=== PATIENT | male | born 1950 | race Caucasian/White ===

== ENCOUNTER → 2022-05-11 15:30 | Outpatient (BNVA) | payer MEDICARE, SELFPAY | PROVIDERS: PCP Family Medicine; Visit Provider Internal Medicine Cardiovascular Disease | DX: I48.11 Longstanding persistent atrial fibrillation (principal); I10 Essential (primary) hypertension; E78.2 Mixed hyperlipidemia; E11.65 Type 2 diabetes mellitus with hyperglycemia; G47.33 Obstructive sleep apnea (adult) (pediatric); I49.3 Ventricular premature depolarization; I47.2 Ventricular tachycardia; Z87.891 Personal history of nicotine dependence | CPT/HCPCS: 93005; 93242; 99214 ==

== ENCOUNTER → 2022-07-28 11:00 | Outpatient (BNVA) | payer MEDICARE, SELFPAY | PROVIDERS: PCP Family Medicine; Visit Provider Internal Medicine Cardiovascular Disease | DX: I48.11 Longstanding persistent atrial fibrillation (principal); Z79.01 Long term (current) use of anticoagulants; I49.9 Cardiac arrhythmia, unspecified; I10 Essential (primary) hypertension; E78.2 Mixed hyperlipidemia; E11.65 Type 2 diabetes mellitus with hyperglycemia; Z79.84 Long term (current) use of oral hypoglycemic drugs; G47.33 Obstructive sleep apnea (adult) (pediatric); Z87.891 Personal history of nicotine dependence | CPT/HCPCS: 99214 ==

== ENCOUNTER → 2023-01-26 11:05 | Outpatient (BNVA) | payer MEDICARE, SELFPAY | PROVIDERS: PCP Family Medicine; Visit Provider Internal Medicine Cardiovascular Disease | DX: I48.11 Longstanding persistent atrial fibrillation (principal); I10 Essential (primary) hypertension; E78.2 Mixed hyperlipidemia; E11.65 Type 2 diabetes mellitus with hyperglycemia; G47.33 Obstructive sleep apnea (adult) (pediatric); I49.8 Other specified cardiac arrhythmias; Z87.891 Personal history of nicotine dependence; Z79.84 Long term (current) use of oral hypoglycemic drugs; Z79.01 Long term (current) use of anticoagulants; Z79.82 Long term (current) use of aspirin | CPT/HCPCS: 99214 ==

== ENCOUNTER → 2023-08-10 11:15 | Outpatient (BNVA) | payer MEDICARE, SELFPAY | PROVIDERS: PCP Family Medicine; Visit Provider Internal Medicine Cardiovascular Disease | DX: I48.11 Longstanding persistent atrial fibrillation (principal); I10 Essential (primary) hypertension; E78.2 Mixed hyperlipidemia; E11.65 Type 2 diabetes mellitus with hyperglycemia; G47.33 Obstructive sleep apnea (adult) (pediatric); I49.8 Other specified cardiac arrhythmias; Z87.891 Personal history of nicotine dependence; Z79.01 Long term (current) use of anticoagulants; Z79.84 Long term (current) use of oral hypoglycemic drugs | CPT/HCPCS: 99214 ==

== ENCOUNTER 2023-12-22 06:57 | Outpatient (CLI) | payer MEDICARE, SELFPAY ==
--- NOTE | 2023-12-22 07:01 | MR_ITS ---
WS: [id number] MRI LEFT SHOULDER HISTORY: LEFT SHOULDER PAIN COMPARISON: None available. TECHNIQUE: Multiplanar sequences of the shoulder joint are submitted. Moderate AC joint arthritis. Osteophyte encroaching upon the myotendinous portion of the supraspinatu s. Marked narrowing of the AC joint. Moderate subacromial impingement upon the distal supraspinatus t endon. Small amount of fluid in the subacromial and subdeltoid bursa. Biceps tendon remains in normal position in the bicipital groove. No os acromion. Mildly high riding humeral head with moderate narrowing of the glenohumeral joint. Loss of cartilage over the glenoid and the humeral head. No fracture or marrow edema. No significant joint effusion. Th ere is a small amount of fluid in the rotator cuff interval. No supraspinatus muscle atrophy. Cannot confirm tendon tear. No muscle edema. Mildly globular appeara nce to the posterior and inferior labrum with increased central signal. Labrum is entirety is difficu lt to visualize adequately. IMPRESSION: 1. Moderate AC joint arthritis with osteophyte encroaching upon the myotendinous portion of the supr aspinatus. 2. High riding humeral head with moderate subacromial impingement. 3. No rotator cuff tear is identified. No muscle atrophy or retraction. 4. Moderate glenohumeral joint arthritis with loss of cartilage. 5. Limited evaluation of the labrum. There is at least moderate internal degeneration. Small tears a re not excluded involving the posterior and inferior labrum.
== END 2023-12-22 06:58 | disposition home or self-care (01) ==
LOC: RAD 06:57
PROVIDERS: PCP Family Medicine; Visit Provider Family Medicine
DX: M19.012 Primary osteoarthritis, left shoulder (principal); M25.78 Osteophyte, vertebrae; M75.42 Impingement syndrome of left shoulder
CPT/HCPCS: 73221

== ENCOUNTER → 2024-01-13 08:19 | Outpatient (BNVA) | payer MEDICARE, SELFPAY | PROVIDERS: PCP Family Medicine; Referring Provider Family Medicine; Visit Provider Student in an Organized Health Care Education/Training Program | DX: M19.012 Primary osteoarthritis, left shoulder; M75.42 Impingement syndrome of left shoulder; S46.002A Unspecified injury of muscle(s) and tendon(s) of the rotator cuff of left shoulder, initial encounter; X58.XXXA Exposure to other specified factors, initial encounter | CPT/HCPCS: 73030; 99204 ==

== ENCOUNTER 2024-01-31 08:02 | Outpatient (CLI) | payer MEDICARE, SELFPAY ==
[2024-01-31 09:03] LABS: Chol HDL Ratio 4.03 mg/dL (1.0-5.00); Cholesterol 141 mg/dL (0-200); HDL Cholesterol 35 mg/dL (60-100); LDL Cholesterol Calculated 79 mg/dL (50-129); LDL HDL Ratio 2.26 RATIO (0.00-3.22); Triglycerides 133 mg/dL (0-150)
[2024-01-31 09:33] LABS: Estmated Average Glucose 163; Hemoglobin A1C 7.3 % (4.0-6.0)
== END 2024-01-31 08:03 | disposition home or self-care (01) ==
LOC: LAB 08:03
PROVIDERS: PCP Family Medicine; Visit Provider Physician Assistant
DX: I10 Essential (primary) hypertension (principal); N40.0 Benign prostatic hyperplasia without lower urinary tract symptoms; R73.03 Prediabetes; I48.20 Chronic atrial fibrillation, unspecified
CPT/HCPCS: 36415; 80061; 83036; 84153; 84443

== ENCOUNTER → 2024-02-08 15:00 | Outpatient (BNVA) | payer MEDICARE, SELFPAY | PROVIDERS: PCP Family Medicine; Visit Provider Family Medicine | DX: Z01.818 Encounter for other preprocedural examination (principal) | CPT/HCPCS: 80053; 81003; 85025 ==

== ENCOUNTER 2024-03-01 09:31 | Day surgery (SDC) | payer MEDICARE, SELFPAY ==
[2024-03-01] VITALS (8 sets, daily range): BP systolic 92–165; BP diastolic 74–108; PULSE 76–101; RESP 16–18; TEMP 36.1–36.4; O2SAT 92–98; BMI 28.6
[2024-03-01] MEDS: acetaminophen 1,000 MG/100 ML PIGGYBACK 400 MG IV (10:16)
[2024-03-01] MEDS: sodium chloride 0.9% 1,000 ML 30 ML IV (10:17)
[2024-03-01] MEDS: scopolamine 1.5 Patch 1 PATCH TRANSDERMA (10:17)
[2024-03-01] MEDS: ketorolac 30 mg/mL INJ IVP (10:18)
[2024-03-01 10:19] LABS: Glucose Point of Care 130 mg/dL (70-110)
--- NOTE | 2024-03-01 10:19 | P.ANESASSM_ITS ---
Pre-Anesthetic Assessment Height/Weight: Height 1.7 m Weight 83.007 kg Temp Pulse Resp BP Pulse Ox O2 Del Method 97.6 F 79 17 165/108 97 Room Air 03/01/24 09:55 03/01/24 09:55 03/01/24 09:55 03/01/24 09:55 03/01/24 09:55 03/01/24 09:55 Operation Date: 03/01/24 11:10 Proposed Procedures p Shoulder Arthroscopy(Left) - Tutu Merlin, DO s Subacromial Decompression(Left) - Tutu [place], DO s AC Joint Resection(Left) - Tutu Merlin, DO s Rotator Cuff Repair - Arthroscopy/ possible with possible balloon spacer(Left) - Tutu [place], DO Familial anesthetic complications: None Was Beta Selina taken within 24 hours: N/A Was Clonidine taken within 24 hours: N/A Last intake: Intake Last Liquid Date 02/29/24 Last Liquid Time 21:00 Last Solid Date 02/29/24 Last Solid Time 21:00 Social No alcohol and No tobacco Exam alert, oriented x 3, clear to auscultation bilaterally and regular rate & rhythm Airway Mallampati: Class III Dentition: full Pulmonary Sleep Apnea CV/HEM Atrial Fibrillation and Hypertension Metabolic Diabetes Mellitus and Hyperlipidemia Anesthetic Plan ASA status: 3 Anesthesia: General and Regional (specify below) Risk of > 500 ml blood loss (7ml/kg in children): No Medications/Allergies Home Medications Medication Instructions Recorded Confirmed Last Taken Type metformin 1,000 mg tablet 1,000 mg PO BID 02/05/20 02/29/24 02/28/24 History metoprolol succinate 100 mg 100 mg PO BID 02/05/20 02/29/24 03/01/24 History tablet,extended release 24 hr (Toprol XL) atorvastatin 40 mg tablet 40 mg PO DAILY 02/19/21 02/29/24 02/29/24 History nitroglycerin 0.4 mg sublingual 0.4 mg sublingual Q5M PRN chest 02/19/21 02/29/24 Unknown History tablet pain aspirin 81 mg tablet,delayed 81 mg PO DAILY 08/28/21 02/29/24 02/25/24 History release isosorbide mononitrate 60 mg 60 mg PO DAILY #90 tabs 01/16/22 02/29/24 02/29/24 Rx tablet,extended release 24 hr enoxaparin 80 mg/0.8 mL 80 mg (0.8 mL) SUBCUT Q12H #8 mL 02/08/24 02/29/24 02/28/24 Rx subcutaneous syringe (Lovenox) warfarin 3 mg tablet (Jantoven) 3 mg PO DAILY 02/08/24 02/29/24 02/22/24 History warfarin 4 mg tablet 4 mg PO DAILY 02/08/24 02/29/24 02/22/24 History amlodipine 5 mg tablet 5 mg PO DAILY 02/29/24 02/29/24 02/29/24 History losartan 100 mg tablet 100 mg PO DAILY 02/29/24 02/29/24 02/29/24 History magnesium L-lactate 84 mg 84 mg PO DAILY 02/29/24 02/29/24 02/29/24 History tablet,extended release (Magtab) hydrocodone 5 mg-acetaminophen 325 1 tab PO Q6H PRN pain 5 days #20 03/01/24 Unknown Rx mg tablet tabs ondansetron 4 mg disintegrating 4 mg PO Q8H PRN nausea and 03/01/24 Unknown Rx tablet vomiting 3 days #9 tabs Allergies Allergy/AdvReac Type Severity Reaction Status Date / Time lisinopril AdvReac cough Verified 02/29/24 09:13 Current Medications Generic Name Dose Route Start Last Admin Trade Name Freq PRN Reason Stop Dose Admin Sodium Chloride 1,000 mls @ 30 mls/hr 03/01/24 09:45 03/01/24 10:17 Sodium Chloride 0.9% IV 03/02/24 09:44 30 mls/hr .Q24H ROSS Administration PFSH Anesthesia Medical History Abnormal nuclear stress test Atrial fibrillation Hypertension Hyperlipidemia Arthritis Diabetes mellitus Sleep apnea Hiatal hernia Surgical History H/O: vasectomy H/O hernia repair History of ankle surgery History of neck surgery Family History Father CAD (coronary artery disease) Mother CAD (coronary artery disease) Diabetes Stroke Brother CAD (coronary artery disease) Sister Chronic kidney disease (CKD) Diabetes Lung disease Denies family history of Clotting disorder Dementia Suicide Anesthesia complication Bleeding disorder Cancer Social History Smoking and tobacco/nicotine status: former use of tobacco/nicotine Alcohol intake: current Alcohol intake frequency: holidays/special occasions only Substance/Drug Use: never Data Anesthesia Cardiac Studies: Holter Monitor 05/11/22
[2024-03-01 10:39] LABS: INR 0.97 (0.8-1.2)
--- NOTE | 2024-03-01 10:41 | ANES.PROC ---
Anesthesia Procedures Procedure/Date: 03/01/24 Nerve Block ^: Nerve Block 1: Main Anesthesia: general anesthesia Time Out Performed: Yes Consent: requested by attending/covering physician, from patient, from other, risks and benefits reviewed and patient agrees to proceed Nerve block location: interscalene (L) Anesthesia monitors applied: pulse oximetry, EKG, BP cuff and oxygen Nerve block position: semi sitting Anesthetic Used: ropivicaine 0.5% (20 ml) and with decadron (4 mg) Ultrasound used to: recognize landmarks, visualize and ID brachial plexus, in supraclavicular region and visualize and ID interscalene groove Nerve Stimulator Used?: No Interscalene/Femoral BLK: 2 stimuplex 22 g needle used for position and inplane approach, visualize local anesthetic spread and no vascular puncture identified Patient Tolerated Procedure: well Complications: none
--- NOTE | 2024-03-01 12:06 | W.PM.OPSFHP ---
Same Day Surgery H&P Indication for Procedure/HPI DATE OF PROCEDURE: March 01, 2024 CHIEF COMPLAINT/INDICATIONFOR SURGICAL PROCEDURE: Left shoulder AC joint arthritis Rotator cuff injury, subacromial impingement, biceps tendinitis PREOP DIAGNOSIS: Left shoulder AC joint arthritis Rotator cuff injury, subacromial impingeme PLANNED PROCEDURE: Operation Date: 03/01/24 11:10 Proposed Procedures p Shoulder Arthroscopy(Left) - Tutu Boyer, DO s Subacromial Decompression(Left) - Tutu Boyer DO s AC Joint Resection(Left) - Tutu Boyer, DO s Rotator Cuff Repair - Arthroscopy/ possible with possible balloon spacer(Left) - Tutu Boyer, DO Medications/Allergies* Home Medications Medication Instructions Recorded Confirmed Type metformin 1,000 mg tablet 1,000 mg PO BID 02/05/20 02/29/24 History metoprolol succinate 100 mg 100 mg PO BID 02/05/20 02/29/24 History tablet,extended release 24 hr (Toprol XL) atorvastatin 40 mg tablet 40 mg PO DAILY 02/19/21 02/29/24 History nitroglycerin 0.4 mg sublingual 0.4 mg sublingual Q5M PRN chest 02/19/21 02/29/24 History tablet pain aspirin 81 mg tablet,delayed 81 mg PO DAILY 08/28/21 02/29/24 History release warfarin 3 mg tablet (Jantoven) 3 mg PO DAILY 02/08/24 02/29/24 History warfarin 4 mg tablet 4 mg PO DAILY 02/08/24 02/29/24 History amlodipine 5 mg tablet 5 mg PO DAILY 02/29/24 02/29/24 History losartan 100 mg tablet 100 mg PO DAILY 02/29/24 02/29/24 History magnesium L-lactate 84 mg 84 mg PO DAILY 02/29/24 02/29/24 History tablet,extended release (Magtab) Allergies/Adverse Reactions Allergy/AdvReac Type Severity Reaction Status Date / Time lisinopril AdvReac cough Verified 02/29/24 09:13 Current Medications: Generic Name Dose Route Start Last Admin Trade Name Freq PRN Reason Stop Dose Admin Sodium Chloride 1,000 mls @ 30 mls/hr 03/01/24 09:45 03/01/24 10:17 Sodium Chloride 0.9% IV 03/02/24 09:44 30 mls/hr .Q24H ROSS Administration Pertinent History/Comorbid Conditions* Medical History (Updated 01/17/24 @ 20:10 by Tutu Boyer DO) Abnormal nuclear stress test Atrial fibrillation Hypertension Hyperlipidemia Arthritis Diabetes mellitus Sleep apnea Hiatal hernia Surgical History (Updated 02/05/20 @ 15:49 by Marquez Mason MD) H/O: vasectomy H/O hernia repair History of ankle surgery History of neck surgery Family History (Updated 02/19/21 @ 14:59 by Elsi Keys RN) Diabetes Mother Sister CAD (coronary artery disease) Father Mother Brother Chronic kidney disease (CKD) Sister Lung disease Sister Stroke Mother Denies family history of Clotting disorder Dementia Suicide Anesthesia complication Bleeding disorder Cancer Social History Smoking and tobacco/nicotine status: former use of tobacco/nicotine Alcohol intake: current Alcohol intake frequency: holidays/special occasions only Substance/Drug Use: never Pertinent Exam Findings alert, oriented x 3, operative site marked and procedure specific exam findings Please refer to detailed orthopedic clinical examination for last office visit on 01/13/2024 listed below: Left shoulder exam: C-Spine ROM: Normal C-spine range of motion with no pain Spurlings: Negative ROM: Passive down 180 Passive Active only can forward flex to 70 degrees clinical examination consistent with rotator cuff injury TTP tenderness to palpation over the AC joint, anterior shoulder lateral shoulder and posterior aspect of the shoulder Internal Rotation 5 out of 5 with elbows at the side External Rotation 4 out of 5 with elbows at the side O'Briens: Positive with weakness Jobes: Positive with weakness Barker Impingement: Positive Speeds Test: Positive Crossover/Neers test: Positive with tender over AC joint Positive drop arm test consistent with rotator cuff injury Recommendations Surgery/Procedure today Other Plans: Plan to proceed with left shoulder diagnostic and surgical arthroscopy with subacromial decompression AC joint resection, biceps tenotomy, possible rotator cuff repair, possible balloon spacer. He understands the ins and outs procedure the risk benefits complication alternatives of surgery and through shared decision make elects proceed with surgical intervention. All questions answered this time. He has significant rotator cuff dysfunction but on his x-rays he has minimal degenerative changes of the glenohumeral joint on MRI he has a high riding humeral head suspicious for incompetent rotator cuff versus massive rotator cuff tear. At this point in time we talked about his treatment options and activity pursue a less definitive option from the standpoint of an arthroscopy procedure rather than a total shoulder replacement the understanding appropriate expectations that this may not completely resolve his issues and function but will hopefully improve from his baseline without doing any definitive type procedure as a replacement surgery understanding and agree with current plan. All questions answered. Patient family agree to proceed all questions answered. Coding Level of Care Code Acute Code for [place] Nevarez
[2024-03-01] MEDS: ceFAZolin 2,000 MG in sodium chloride 0.9% (plus) 50 ML 100 MG IV (12:35)
[2024-03-01] MEDS: EPINEPHrine 1 mg/mL INJ 2 MG XX (13:22)
--- NOTE | 2024-03-01 14:26 | W.PM.BPON ---
Date of Procedure: [March 01, 2024] Surgeon: [Dr. Boyer DO] Help Desk Operator(s): [Adi Boyer PA-C] Procedure(s) performed: [Left shoulder diagnostic and surgical arthroscopy Biceps tenotomy Labral debridement Subscapular debridement AC joint resection Rotator cuff debridement subacromial decompression Balloon spacer] Findings of the procedure(s): [Left shoulder biceps tendinitis, labral tearing, subscapularis tearing, AC joint arthritis, left shoulder rotator cuff attenuation and dysfunction] Estimated blood loss: [5 mL] Specimen(s) removed: [N/A] Post-operative diagnosis: [Left shoulder biceps tendinitis, labral tearing, subscapularis tearing, AC joint arthritis, left shoulder rotator cuff attenuation and dysfunction]
--- NOTE | 2024-03-01 14:31 | PM.PACU ---
PACU note Narrative: Patient is a 73-year-old male that just underwent a left shoulder diagnostic and surgical arthroscopy. Patient transferred to PACU in stable condition. Pain is well controlled. shoulder Dressing on , dry and in place. Patient's operative arm is in a shoulder immobilizer. Patient is awake and alert and able to respond to my questions accordingly. Patient's fingers are warm with good perfusion. Normal cap refill under 2 seconds. Patient can wiggle fingers. Sensation to hand intact. Unable to assess further range of motion in arm due to sling. Exam: awake Disposition: discharged
[2024-03-01] MEDS: HYDROcodone-acetaminophen 5-325 mg Tablet 1 TAB PO (15:14)
--- NOTE | 2024-03-01 15:15 | PM.OP ---
Operative Report Date of procedure: March 01, 2024 Surgeon: Tutu Boyer DO Procedure: Surgeon: Tutu Boyer DO House Carpenter Helper: Adi Boyer PA-C: DANGELO was necessary for assistance in this case for assistance in holding shoulder positioning as well as assistance with instrumentation and passing as well as to assist with wound closure. Procedure: Preoperative diagnosis: Left shoulder pain Left shoulder rotator cuff tear/dysfunction Left shoulder AC joint arthritis Left shoulder subacromial impingement Left shoulder biceps tendinitis Post-op diagnosis:? Left?shoulder massive rotator cuff attenuation and dysfunction Left?shoulder?biceps tendon tear Left shoulder labral tearing Left?shoulder?AC joint arthritis Left?shoulder?subacromial bursitis/impingement Procedure done: Left?shoulder?diagnostic and surgical arthroscopy biceps tenotomy Left?shoulder?diagnostic and surgical arthroscopy labral debridement Left?shoulder?diagnostic and surgical arthroscopy acromioclavicular joint resection Left?shoulder?diagnostic and surgical arthroscopy subacromial decompression (acromioplasty and bursectomy) Left shoulder diagnostic and surgical arthroscopy rotator cuff debridement with subacromial balloon spacer for massive rotator cuff attenuation/tearing and dysfunction Left shoulder diagnostic and surgical arthroscopy with subscapularis tendon debridement Surgeon: Tutu Boyer DO Estimated blood loss: [5]mL IV fluids: 800 mL Implants: Medium size Lurdes Inspace subacromial balloon Complications: None Condition: stable Disposition: same day Brief History: Patient been seen and worked up in the outpatient setting for Left?shoulder?pain.? Pt had an MRI consistent with patients ac joint arthritis, biceps tendintis, subacromial impingement, rotator cuff dysfunction/thinning and possible tearing. Patient's failed conservative treatment and has significant weakness.? Patient has findings on exam are classic consistent of a massive Left shoulder rotator cuff tear. We talked about treatment options far as nonoperative and operative intervention..? We talked about risk benefits complication alternatives surgical nonsurgical treatment options.? Understanding risk of surgery pt agrees to proceed with surgical intervention.? All questions have been answered at this time.? Patient elects proceed with surgery and consent obtained in office. Procedure: Patient seen evaluated in the preoperative holding area.? Consent reviewed and signed with patient.? Once again reviewed patient's MRI results as well as? planned surgical intervention.? Correct extremity marked.? Patient seen evaluated by anesthesia department received regional anesthesia.? Once ready for surgery was taken back to the operative suite.? Patient then subsequently underwent anesthesia per the anesthesia department was transported onto the OR table.? Patient was then placed into a lateral decubitus position with a beanbag and was appropriately secured to the bed.? All bony prominences well-padded.? Patient then had the Left upper extremity was then prepped and draped in standard orthopedic fashion.? Patient received appropriate preoperative antibiotics.? Final timeout performed. The Left upper extremity was then held in hanging from traction utilizing sterile technique.? Next started with standard diagnostic and surgical arthroscopy with posterior portal position introduced arthroscope into the glenohumeral joint.? Visualized the glenohumeral joint I then introduced a spinal needle within the rotator cuff interval to confirm appropriate anterior portal placement.? Once this was confirmed I then made my small incision and then introduced my arthroscopic shaver into the glenohumeral joint.? After thorough debridement was clearly evident patient had a significant erythema as well as positive liftoff sign of the biceps anchor and biceps tendon tear as it was pulled within the joint.? Decision at this time was made to perform a biceps tenotomy.? Introduced a thermal wand and a biceps tenotomy was performed to completion With appropriate release.? Next I evaluated the subscapularis tendon which was intact with with only partial fraying subsequently utilized an arthroscopic shaver and thermal wand to perform the notable debridement of the subscapularis tendon overall its continuity was intact. ?Next there was significant labral tearing at biceps anchor and circumferential.? ? I then subsequently utilized a a arthroscopic shaver and thermal wand to perform a labral debridement.? This point time I then visualized the glenohumeral joint.? The glenohumeral joint was found to have grade mostly grade II chondromalacia throughout with only a slight area of grade 3 on the glenoid focally. . Axillary pouch was free of loose bodies from viewing the posterior portal.? Next a visualized the rotator cuff superiorly, there is no seatbelt sign however patient's rotator cuff tendon tissue was extremely attenuated and very loose there was no tension and had significant ballooning affect with influx and suction of the joint, consistent with significant massive rotator cuff dysfunction with severe thinning of the tissues concerning for incompetent rotator cuff. This completed my work within the glenohumeral joint all fluid was suctioned free of the joint.? ?Next I reintroduced the arthroscope posteriorly.? And went to the subacromial space.? I established my lateral working portal.? Thermal wand was then introduced laterally and then I subsequently performed extensive bursectomy of the subacromial space.? I then once again visualized the rotator cuff tissue quality was severely thin and attenuated and had no tension and when taking the shoulder through range of motion had no normal tendon excursion consistent with severe rotator cuff attenuation and dysfunction. Patient had fraying throughout the top of the rotator cuff as result and arthroscopic shaver was then subsequently used to debride the subacromial space as well as to debride the top part of the rotator cuff to stimulate healing. Given the severe thinning of patient's rotator cuff and attenuation of tissue this did not function as normal rotator cuff tendon and and therefore behave more like a massive rotator cuff tear this is how he examined clinically on his severity of weakness and classic inability to abduct and forward flex as well as positive drop arm. There is I did not want to shave and take away any residual fibers of the rotator cuff and there was no ability to retention I feel this patient would be appropriate for a subacromial balloon spacer to occupy the space as the rotator cuff was not functioning as a biomechanical he should and the humeral head had excessive superior migration with activation given the attenuation of the rotator cuff. As a result I elected for subacromial balloon spacer. Given this current nature I selected to place a subacromial balloon to help with the humeral head depressor. In order for preparation of this I performed a standard bursectomy. I then utilized my thermal wand to identify the subacromial space and performed a gentle subacromial decompression just to flatten the acromion. I then identified the AC joint. Once identified the AC joint this was very arthritic in nature.? Thermal wand was placed anteriorly to establish appropriate plane for AC joint resection.? Once appropriate margins and anterior inferior and anterior capsule was released I then introduced arthroscopic shaver and a bur and performed AC joint resection of both the acromion to cope plane at the AC joint and a distal clavicle resection was then performed totaling 1 cm in size and was confirmed.? This completed my AC joint resection. At this point in time I then proceeded with placement of a subacromial balloon in space. At this point in time I utilized the standard measuring device utilizing arthroscopic probe and this was determined to have appropriate space for a medium sized this was then selected and opened by the rep and handed to my staff. I then utilizing the InSpace deployment device this was then laid into the subacromial space placed into appropriate position the balloon was then exposed and the balloon was then subsequently filled with normal saline to the appropriate amount per [employer]ur[employer] InSpace protocol. The device was then disengaged and the balloon was inspected this stayed in stable position I then mobilized the shoulder and the humeral head remained depressed and in its appropriate position while it was taken through range of motion of the balloon stayed in stable position and had satisfactory placement and covered the humeral head. This completed the surgery.? All fluid was suctioned from the?shoulder.? All instruments were removed.? The lateral incision was then closed with nylon stitches.? As well as the portal sites closed with portal nylon stitches.? Xeroform 4 x 4's ABD and tape was then applied to the Left?shoulder?and was placed into a?shoulder?abduction pillow sling..? Patient was then awakened from anesthesia and then taken back to PACU in stable condition.? Patient tolerated procedure without any issues. Disposition: Patient taken back in stable condition recovering well.? Dressings on in place clean dry and intact.? Will be nonweightbearing to the Left upper extremity.? Follow appropriate PT protocol.? Patient to follow-up with me in the office in 2 weeks.? Patient will receive appropriate discharge instruction as well as pain medication postoperatively.? All questions answered.? We will contact the office for any questions or concerns.
--- NOTE | 2024-03-01 15:35 | ANE.PACU2 ---
Inpatient post-anesthesia follow up: Airway intact: Yes Vital signs: Temperature 97.2 F Pulse Rate 76 Respiratory Rate 17 Blood Pressure 134/86 Pulse Oximetry 92 Oxygen Delivery Me thod Room Air Oxygen Flow Rate 6 Fraction of Inspir ed Oxygen Hydration adequate: Yes Nausea and vomiting: No Pain level: 1 Mental status: Baseline
== END 2024-03-01 15:35 | disposition home or self-care (01) ==
PROVIDERS: Anesthesiology; PCP Family Medicine; Visit Provider Student in an Organized Health Care Education/Training Program
PROC: (CPT 29805; principal; 2024-03-01 11:00)
PROC: (CPT 29826; 2024-03-01 11:00)
PROC: 0RSH0ZZ Reposition Left Acromioclavicular Joint, Open Approach (ICD-10-PCS; CPT 29826; 2024-03-01 11:00)
PROC: 0LQ24ZZ Repair Left Shoulder Tendon, Percutaneous Endoscopic Approach (ICD-10-PCS; CPT 29827; 2024-03-01 11:00)
PROC: (CPT 23405; 2024-03-01 11:00)
PROC: (CPT 29827; 2024-03-01 11:00)
DX: M75.102 Unspecified rotator cuff tear or rupture of left shoulder, not specified as traumatic (principal); M19.012 Primary osteoarthritis, left shoulder; M25.812 Other specified joint disorders, left shoulder; M75.22 Bicipital tendinitis, left shoulder; G47.30 Sleep apnea, unspecified; I48.91 Unspecified atrial fibrillation; I10 Essential (primary) hypertension; E11.9 Type 2 diabetes mellitus without complications; E78.5 Hyperlipidemia, unspecified; Z79.84 Long term (current) use of oral hypoglycemic drugs; Z79.01 Long term (current) use of anticoagulants; Z79.82 Long term (current) use of aspirin; Z87.891 Personal history of nicotine dependence
CPT/HCPCS: 29826; 29827; 29828; 36415; 36416; 82962; 85610; C1889; J0131; J0171; J0690; J1100; J1885; J2371; J2405; J2704; J2710; J2795; J3010; J3490; J7030

== ENCOUNTER → 2024-03-21 14:51 | Outpatient (BNVA) | payer MEDICARE, SELFPAY | PROVIDERS: PCP Family Medicine; Visit Provider Student in an Organized Health Care Education/Training Program | DX: Z98.890 Other specified postprocedural states (principal) | CPT/HCPCS: 99024 ==

== ENCOUNTER 2024-04-04 10:26 | Outpatient (RCR) | payer MEDICARE, SELFPAY | END 2024-04-28 23:59 | disposition home or self-care (01) | LOC: SPT 10:26 | PROVIDERS: PCP Family Medicine; Visit Provider Student in an Organized Health Care Education/Training Program | DX: Z98.890 Other specified postprocedural states (principal) | CPT/HCPCS: 97110; 97161 ==

== ENCOUNTER → 2024-04-05 13:38 | Outpatient (BNVA) | payer MEDICARE, SELFPAY | PROVIDERS: PCP Family Medicine; Visit Provider Internal Medicine Cardiovascular Disease | DX: I48.11 Longstanding persistent atrial fibrillation (principal); E78.2 Mixed hyperlipidemia; I10 Essential (primary) hypertension; R94.39 Abnormal result of other cardiovascular function study; I49.8 Other specified cardiac arrhythmias; Z87.891 Personal history of nicotine dependence; Z79.01 Long term (current) use of anticoagulants | CPT/HCPCS: 99214 ==

== ENCOUNTER 2024-05-03 08:38 | Outpatient (RCR) | payer MEDICARE, SELFPAY | END 2024-05-28 23:59 | disposition home or self-care (01) | LOC: SPT 08:38 | PROVIDERS: PCP Family Medicine; Visit Provider Student in an Organized Health Care Education/Training Program | DX: Z98.890 Other specified postprocedural states (principal) | CPT/HCPCS: 97110 ==

== ENCOUNTER → 2024-05-16 15:15 | Outpatient (BNVA) | payer MEDICARE, SELFPAY | PROVIDERS: PCP Family Medicine; Visit Provider Physician Assistant | DX: Z98.890 Other specified postprocedural states (principal) | CPT/HCPCS: 99024 ==

== ENCOUNTER 2024-05-30 07:49 | Outpatient (RCR) | payer MEDICARE, SELFPAY | END 2024-06-28 23:59 | disposition home or self-care (01) | LOC: SPT 07:49 | PROVIDERS: PCP Family Medicine; Visit Provider Student in an Organized Health Care Education/Training Program | DX: Z98.890 Other specified postprocedural states (principal) | CPT/HCPCS: 97110 ==

== ENCOUNTER → 2024-08-15 08:07 | Outpatient (BNVA) | payer MEDICARE, SELFPAY | PROVIDERS: PCP Family Medicine; Visit Provider Physician Assistant | DX: Z98.890 Other specified postprocedural states (principal) | CPT/HCPCS: 99213 ==

== ENCOUNTER → 2024-10-12 13:37 | Outpatient (BNVA) | payer MEDICARE, SELFPAY | PROVIDERS: PCP Family Medicine; Visit Provider Internal Medicine Cardiovascular Disease | DX: I11.0 Hypertensive heart disease with heart failure (principal); I50.9 Heart failure, unspecified; I48.11 Longstanding persistent atrial fibrillation; E78.2 Mixed hyperlipidemia; I49.9 Cardiac arrhythmia, unspecified; R94.39 Abnormal result of other cardiovascular function study; M25.662 Stiffness of left knee, not elsewhere classified | CPT/HCPCS: 99214 ==

== ENCOUNTER 2025-04-10 09:12 | Outpatient (CLI) | payer MEDICARE, SELFPAY ==
--- NOTE | 2025-04-10 09:19 | USR_ITS ---
PROCEDURE INFORMATION: Exam: US Bilateral Noninvasive Physiologic Study of the Lower Extremity Arteries, Limited Exam date and time: 04/10/2025 9:10 AM Age: 74 years old Clinical indication: Condition or disease; Peripheral vascular disease; Additional info: Pvd TECHNIQUE: Imaging protocol: Bilateral Limited bilateral noninvasive physiologic studies of lower extremity arteries. Waveforms were obtained and evaluated. Images were documented and archived. Exam is limited. COMPARISON: No relevant prior studies available. FINDINGS: Right Ankle-Brachial Index: Posterior tibial 0.99, dorsalis pedis 1.07, digit 1.22. Left Ankle-Brachial Index: Posterior tibial 1.07, dorsalis pedis 1.01, digit 1.17. US/CV ankle brachial index 54670 IMPRESSION: No evidence of stenosis or occlusion in the lower extremity.
== END 2025-04-10 09:13 | disposition home or self-care (01) ==
PROVIDERS: PCP Family Medicine; Visit Provider Family Medicine
DX: I73.9 Peripheral vascular disease, unspecified (principal)
CPT/HCPCS: 93922

== ENCOUNTER → 2025-06-05 14:57 | Outpatient (BNVA) | payer MEDICARE, SELFPAY | PROVIDERS: PCP Family Medicine; Visit Provider Internal Medicine Cardiovascular Disease | DX: R29.898 Other symptoms and signs involving the musculoskeletal system (principal); I48.11 Longstanding persistent atrial fibrillation; Z79.01 Long term (current) use of anticoagulants; Z79.82 Long term (current) use of aspirin; E78.5 Hyperlipidemia, unspecified; I10 Essential (primary) hypertension; I49.8 Other specified cardiac arrhythmias; R94.39 Abnormal result of other cardiovascular function study; Z87.891 Personal history of nicotine dependence | CPT/HCPCS: 99214 ==